=== PATIENT | male | born 1955 | race Caucasian/White ===

== ENCOUNTER 2023-08-21 20:53 | Emergency (ER) | payer BC ==
[2023-08-21] MEDS: Bacitracin Oint 1 GM U/D Packet TOP ONE (21:39)
[2023-08-21] MEDS: Lidocaine 1% with EPINEPHrine 1:100,000 20 ML MDV INJECT ONE (21:39)
[2023-08-21] MEDS: Diphtheria,Pertussis(Acell),Tetanus Vaccine 0.5 ML Syringe IM ONE (21:42)
== END 2023-08-21 22:05 | disposition home or self-care (01) ==
LOC: JP.ED 20:53
DX: S60.455A Superficial foreign body of left ring finger, initial encounter (principal); Z88.2 Allergy status to sulfonamides; Z79.82 Long term (current) use of aspirin; Z79.85 Long-term (current) use of injectable non-insulin antidiabetic drugs; Z79.84 Long term (current) use of oral hypoglycemic drugs; Z23 Encounter for immunization; W45.8XXA Other foreign body or object entering through skin, initial encounter
CPT/HCPCS: 90471; 90715; 99283; 99283-25